=== PATIENT | male | born 1940 | race Caucasian/White ===

== ENCOUNTER 2017-07-07 10:46 | Day surgery (SDC) | payer MEDICARE, OTHER ==
[2017-07-06 12:27] LABS: BASOPHILS % (AUTO) 0.7 % (0-1); EOSINOPHILS # (AUTO) 0.3 X10'3 (0-0.9); EOSINOPHILS % (AUTO) 5.6 % (0-6); LYMPHOCYTES # (AUTO) 0.9 X10'3 (1.1-4.8); LYMPHOCYTES % (AUTO) 18.3 % (21-51); MEAN CORPUSCULAR HEMOGLOBIN 29.8 PG (27.0-31.0); MEAN CORPUSCULAR HGB CONC 34.1 % (33.0-36.5); MEAN CORPUSCULAR VOLUME 87.4 FL (78-98); MONOCYTES # (AUTO) 0.5 X10'3 (0-0.9); MONOCYTES % (AUTO) 10.6 % (2-12); NEUTROPHILS # (AUTO) 3.3 X10'3 (1.8-7.7); NEUTROPHILS % (AUTO) 64.8 % (42-75); PRE OP HEMATOCRIT 44.8 % (42.0-52.0); PRE OP HEMOGLOBIN 15.3 g/dL (14.0-17.9); PRE OP PLATELET COUNT 127 X10'3 (140-440); RED BLOOD COUNT 5.12 X10'6 (4.70-6.10)
[2017-07-06 12:31] LABS: CLARITY,URINE Clear (Clear); COLOR,URINE Yellow (Yellow); GLUCOSE, URINE Negative (Neg); KETONES,URINE Negative (Neg); LEUKOCYTE ESTERASE ,URINE Negative (Neg); NITRITES, URINE Negative (Neg); OCCULT BLOOD,URINE Negative (Neg); PROTEIN,URINE Negative (Neg)
[2017-07-06 12:35] LABS: UA COLLECTION TYPE CLN CATCH MIDSTREAM
[2017-07-06 12:45] LABS: ALBUMIN 3.9 G/DL (3.4-5.0); ALBUMIN/GLOBULIN RATIO 0.9 (1.1-1.5); ALKALINE PHOSPHATASE 91 IU/L (46-116); BLOOD UREA NITROGEN 16 MG/DL (7-18); BUN/CREATININE RATIO 15.7 (5.4-32.0); CALCIUM 9.1 MG/DL (8.5-10.1); CHLORIDE 104 MMOL/L (99-107); CREATININE 1.02 MG/DL (0.60-1.10); PRE OP ALT 24 U/L (30-65); PRE OP ANION GAP 7 (8-16); PRE OP AST 20 U/L (10-37); PRE OP BILIRUB, TOTAL 0.6 MG/DL (0.0-1.0); PRE OP GLUCOSE 104 MG/DL (70-104); PRE OP POTASSIUM 4.5 MMOL/L (3.4-5.1); PRE OP SODIUM 138 MMOL/L (135-145); TOTAL CARBON DIOXIDE 27.2 MMOL/L (24-32); TOTAL PROTEIN 8.4 G/DL (6.4-8.2); eGFR 71 ML/MIN
[2017-07-07] VITALS (8 sets, daily range): BP systolic 155–166; BP diastolic 77–86
[~2017-07-07] VITALS: Ht 182.9 cm; Wt 81.0 kg
[~2017-07-07 10:46] MED LIST: AMLO2.5T2 PO; LOSA50TA3 PO; ceFAZolin inj. 2,000 MG in dextrose 5%-water 100 ML IV ONE; famotidine 20mg tablet PO ONE; ringers solution, lacted 1,000 ML IV SCH
[2017-07-07] MEDS ORDERED: BUPIVAcaine/PF 2.5 mg/ml (0.25%) 30ml vial ONE (15:07)
[2017-07-07] MEDS ORDERED: ceFAZolin 1000mg inj ONE (15:07)
[2017-07-07] MEDS ORDERED: epiNEPHrine 1 mg/ml inj ONE (15:07)
[2017-07-07] MEDS ORDERED: ringers solution, lacted 1,000 ML IV SCH (15:09)
[2017-07-07] MEDS ORDERED: labetalol 5mg/ml 20ml inj. IV PRN (15:10)
[2017-07-07] MEDS ORDERED: hydrALAZINE 20mg/ml inj. IV PRN (15:10)
[2017-07-07] MEDS ORDERED: meperidine/PF 25mg/ml syringe IV PRN ×2 (15:10)
[2017-07-07] MEDS ORDERED: ondansetron/PF 4mg/2ml inj IV PRN (15:10)
[2017-07-07] MEDS ORDERED: fentaNYL/PF 50MCG/1 ML 2ML syringe ONE (15:11)
[2017-07-07] MEDS ORDERED: sevoflurane 250ml liquid IH ONE (15:11)
[2017-07-07] MEDS ORDERED: neostigmine methylsulfate 1 MG/ML 10ml vial ONE (15:11)
[2017-07-07] MEDS ORDERED: propofol inj 20 ML IV ONE (15:11)
[2017-07-07] MEDS ORDERED: midazolam 2 mg/2 ml injection ONE (15:11)
[2017-07-07] MEDS ORDERED: glycopyrrolate 0.2mg/ml inj ONE (15:11)
[2017-07-07] MEDS ORDERED: LIDOcaine 2% (20mg/ml) 5ml vial ONE (15:11)
[2017-07-07] MEDS ORDERED: dexamethasone sod phosphate 4mg/ml inj. ONE (15:11)
[2017-07-07] MEDS ORDERED: ondansetron/PF 4mg/2ml inj ONE (15:12)
[2017-07-07] MEDS ORDERED: rocuronium 10mg/ml inj IV ONE (15:12)
[2017-07-07] MEDS ORDERED: ketorolac trometh. 30mg/ml inj. ONE (16:54)
== END 2017-07-07 17:55 | disposition home or self-care (01) ==
LOC: PAS 10:46
PROVIDERS: ATTEND Surgery
DX: K43.2 Incisional hernia without obstruction or gangrene (principal); K66.0 Peritoneal adhesions (postprocedural) (postinfection); K21.9 Gastro-esophageal reflux disease without esophagitis; I10 Essential (primary) hypertension; Z85.05 Personal history of malignant neoplasm of liver; Z87.891 Personal history of nicotine dependence; Z98.890 Other specified postprocedural states; Z79.899 Other long term (current) drug therapy
CPT/HCPCS: 36415; 49654; 71046; 80053; 81003; 85025; 93005; C1758; C1781; J0171; J0690; J1100; J1885; J2001; J2175; J2250; J2405; J2704; J2710; J3010; J3490; J7060; J7120; A7000